=== PATIENT | female | born 1950 | race Caucasian/White ===

== ENCOUNTER 2019-04-08 14:56 | Emergency (ER) | payer OTHER ==
[~2019-04-08] VITALS: Ht 172.7 cm; Wt 106.6 kg
[2019-04-08 15:00] VITALS: BP 126/76
[2019-04-08] MEDS ORDERED: XANAX1 MG PO (15:04)
[2019-04-08] MEDS ORDERED: BUSPIRONE HCL10 MG PO (15:05)
[2019-04-08] MEDS ORDERED: WELLBUTRIN 100100 MG (15:06)
[2019-04-08] MEDS ORDERED: TRAMADOL 50 MG50 MG PO (15:06)
[2019-04-08 15:50] LABS: URINE BILIRUBIN NEGATIVE (Negative); URINE BLOOD NEGATIVE (Negative); URINE CLARITY CLEAR; URINE COLOR YELLOW; URINE GLUCOSE-RANDOM* NEGATIVE (Negative); URINE KETONES NEGATIVE (Negative); URINE LEUKOCYTES TRACE (Negative); URINE NITRITE NEGATIVE (Negative); URINE PROTEIN (DIPSTICK) NEGATIVE (Negative); URINE SPECIFIC GRAVITY 1.015 (1.005-1.035); URINE UROBILINOGEN 0.2 E.U./dl (0.2-1.0)
[2019-04-08 15:59] LABS: AMP/METHAMP Negative (Negative); BARBITURATES Negative (Negative); BENZODIAZEPINES POSITIVE (Negative); COCAINE Negative (Negative); METHADONE Negative (Negative); OPIATES Negative (Negative); PCP Negative (Negative)
[2019-04-08 17:16] LABS: BASOPHILS 2.4 % (0.0-2.0); EOSINOPHILS 3.8 % (0.0-3.0); HEMATOCRIT 39.8 % (37.0-47.0); HEMOGLOBIN 13.6 gm/dL (12.0-15.0); MCH 30.2 pg (26.0-34.0); MCHC 34.3 g/dL (28.0-37.0); MCV 88.2 fL (80.0-100.0); MONOCYTES 7.9 % (1.0-8.0); PLATELET COUNT 204 thou/uL (150-400); POLYS 38.9 % (36.0-66.0); RBC 4.51 mil/uL (4.20-5.00); RDW 13.3 % (10.5-14.5); WBC 5.2 thou/uL (4.0-11.0)
[2019-04-08 17:23] LABS: ANION GAP 10 mmol/L (7-16); BUN 12 mg/dL (7-18); CALCIUM 9.9 mg/dL (8.5-10.1); CHLORIDE 103 mmol/L (98-107); CO2 26 mmol/L (21-32); CREATININE 1.1 mg/dL (0.6-1.0); GLUCOSE 105 mg/dL (74-106); POTASSIUM 4.2 mmol/L (3.5-5.1); SODIUM 139 mmol/L (136-145)
[2019-04-08 17:32] LABS: ALBUMIN 3.9 g/dL (3.4-5.0); SGOT 24 U/L (15-37); SGPT 39 U/L (30-65); TOTAL BILIRUBIN 0.2 mg/dL (<0.1-1.0); TOTAL PROTEIN 7.5 g/dL (6.4-8.2); TROPONIN-I <0.06 ng/mL (<0.06)
--- NOTE | 2019-04-09 08:02 | EKG ---
[place] [address] [address] [facility] [place] [address] ELECTROCARDIOGRAM REPORT Name: SYD TORREZ Room #: [facility] [id number] ������������������ Admission: 04/08/19 ������������������ Attend Phys: Discharge: 04/08/19 ������������������ Date of : 50 Report #: [id number] ����������������������������������������������������������������� [id number] THIS REPORT FOR: //name// [facility] ED Test Date: 2019-04-08 Test Time: 17:14:37 Pat Name: SYD TORREZ Department: Room: Gender: F [employer]aker: EVERARDO : 1950 Requested By: Rosario Jimenes Order Number: [id number] MD: Keyon Clark Measurements Intervals [place] Rate: 81 P: 43 PA: 138 QRS: 6 QRSD: 89 T: 48 QT: 364 QTc: 423 Interpretive Statements Sinus rhythm Normal tracing No previous ECG available for comparison Electronically Signed On 04-09-2019 8:02:06 CDT by Keyon Clark [email or web address] ��������������������������������������������� <ELECTRONICALLY SIGNED> ���������������������������������������� By: Keyon Clark MD, [facility] ��������������������������������������������� 04/09/19 0802 1714 1714 Keyon Clark MD, FACC /EPI
== END 2019-04-08 18:35 | disposition home or self-care (01) ==
LOC: ER 14:56
PROVIDERS: Physician Assistant
DX: R42 Dizziness and giddiness (principal); H92.01 Otalgia, right ear; F41.9 Anxiety disorder, unspecified; E78.5 Hyperlipidemia, unspecified; Z88.2 Allergy status to sulfonamides; Z88.1 Allergy status to other antibiotic agents